=== PATIENT | male | born 1995 | race Caucasian/White ===

== ENCOUNTER 2022-11-11 20:15 | Emergency (ER) | payer OTHER, SELFPAY ==
[2022-11-11] VITALS (9 sets, daily range): BP systolic 124–147; BP diastolic 63–82; PULSE 57–80; RESP 14–19; TEMP 36.8; O2SAT 98–99; BMI 28.0
--- NOTE | 2022-11-11 21:14 | ED.CHESTPAIN ---
HPI - Chest Pain General Chief Complaint: Chest Pain Stated Complaint: Chest discomfort, shakey, burning sensation Time Seen by Provider: 11/11/22 21:12 Source: patient Mode of arrival: Ambulatory Limitations: no limitations History of Present Illness HPI narrative: 26-year-old gentleman with a prior history of some mild anxiety presents with significantly increased anxiety this evening to the point it felt like the world was closing in on him he developed increasing chest tightness and pain and comes in for further evaluation. States that overall there is currently a lot going on in his life. 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 He and his partner were up for dinner tonight when he began feeling anxious over the course of the evening the anxiety worsened and then he developed some right upper sided chest pain that was worse with deep breathing. He describes no recent fevers, cough, chills. He does not smoke no recreational drugs he does have a history of chronic neck pain and is hoping to see a chiropractor in the near future. With the episode tonight he did did not become diaphoretic or dyspneic. He has not had any palpitations, lower extremity edema or rashes appreciated Related Data Previous Rx's Medication Instructions Recorded hydroxyzine HCl 25 mg tablet 25 mg PO TID PRN anxiety, muscle 11/11/22 spasm #30 tabs Allergies Allergy/AdvReac Type Severity Reaction Status Date / Time hydrocodone AdvReac Verified 11/11/22 20:26 oxycodone AdvReac Verified 11/11/22 20:26 Review of Systems Review of Systems Narrative: Pertinent positive and negative findings as per HPI Patient History Social History Smoking Status: Never smoker Smoking Status: Never smoker Substance Use Type: does not use Exam Initial Vital Signs Initial Vital Signs: Vital Signs Temperature 98.2 F 11/11/22 20:26 Pulse Rate 80 11/11/22 20:26 Respiratory Rate 16 11/11/22 20:26 Blood Pressure 143/82 H 11/11/22 20:26 Pulse Oximetry 99 11/11/22 20:26 Oxygen Delivery Method Room Air 11/11/22 20:26 General: Healthy appearing, in no acute distress. Able to give a complete and coherent history. Well-nourished well-developed HEENT: Moist mucous membranes, normal sclera with reactive pupils, Neck: No JVD, supple Respiratory: Lungs are clear to auscultation, no wheezing no rales no rhonchi. Full and symmetrical air movement Chest: Some minor trapezius muscle tenderness on the right that is radiating down into the clavicular notch with some tenderness reproducible with palpation at the clavicular sternal border and along the right upper sternal border. Cardiac: Regular rate and rhythm no murmurs no bruits Abdomen: Soft, nontender, good bowel tones, no flank pain Skin: Warm and dry, no rashes Neurologic: Grossly neurologically intact with no obvious asymmetries or abnormalities Extremities: No trauma, well perfused Psych: Cooperative, appropriate insight and affect Course Orders Ordered: Discontinued Medications Hydroxyzine Pamoate (Hydroxyzine Pamoate 25 Mg Capsule) 25 mg PO NOW ONE Stop: 11/12/22 00:01 Last Admin: 11/12/22 00:10 Dose: 25 mg Documented By: WILLIAMS Vital Signs Vital signs: Vital Signs - 8 hr 11/11/22 20:26 11/11/22 20:42 11/11/22 20:43 Temperature 98.2 F Pulse Rate 80 72 71 Respiratory Rate 16 17 16 Blood Pressure 143/82 H Pulse Oximetry 99 99 99 Oxygen Delivery Method Room Air 11/11/22 20:43 11/11/22 21:00 11/11/22 21:00 Temperature Pulse Rate 67 Respiratory Rate 19 Blood Pressure 147/81 H 141/74 H Pulse Oximetry 99 Oxygen Delivery Method 11/11/22 21:30 11/11/22 21:30 11/11/22 22:00 Temperature Pulse Rate 61 Respiratory Rate 17 Blood Pressure 132/71 131/67 Pulse Oximetry 98 Oxygen Delivery Method 11/11/22 22:00 11/11/22 22:30 11/11/22 22:30 Temperature Pulse Rate 63 62 Respiratory Rate 18 14 Blood Pressure 124/63 Pulse Oximetry 99 98 Oxygen Delivery Method 11/11/22 23:00 11/11/22 23:00 11/11/22 23:30 Temperature Pulse Rate 57 L Respiratory Rate 15 Blood Pressure 127/66 130/65 Pulse Oximetry 98 Oxygen Delivery Method 11/11/22 23:30 11/12/22 00:00 11/12/22 00:00 Temperature Pulse Rate 61 56 L Respiratory Rate 14 16 Blood Pressure 132/64 Pulse Oximetry 99 98 Oxygen Delivery Method MDM - Chest Pain MDM Narrative Medical decision making narrative: CC: Right-sided chest pain, anxiety. This is an acute problem with uncertain prognosis Complicating co-morbidities: Multiple increased psychosocial stressors Data collected from: patient, partner Differential considered: Anxiety, neck pain, muscle spasm, costochondritis, pneumothorax. Do not suspect acute coronary syndrome, PE, dissection at this time Exam documented above, pertinent findings include: Significantly improved by the time of my exam. He is feeling far less anxious. He does have reproducible pain at the sternoclavicular joint as well as the 1st couple of costochondral joints upper right sternal border that does reproduce the right-sided chest pain with palpation. He is focused, good eye contact appropriate speech and thought content Lab Test are not indicated today Independently reviewed EKG sinus rhythm at a rate of 73. Normal intervals, normal axis. No acute ischemic changes Discussion: 26-year-old gentleman with possible panic attack this evening. Significantly calmed at this point multiple psychosocial stressors most of which are transitional. We talked about the use of Vistaril to help with anxiety, following up with a counselor, a primary care doctor. Using melatonin to help with circadian progression during shift work. At this point there is no evidence of acute coronary syndrome or other life-threatening etiology. Reassurance is given. Given a dose of Vistaril here in the emergency department along with a follow-up prescription to fill if he finds that the Vistaril is helpful in reducing his anxiety without significant side effects. At this point he is safe for discharge home Discharge Plan Departure Patient Disposition: Home Clinical Impression: Atypical chest pain, Musculoskeletal chest pain, Acute situational disturbance Instructions: DI for Atypical Chest Pain Activity Restrictions/Additional Instructions: Thank you for coming in today Your EKG was absolutely reassuring and your story does not particularly concern me for cardiac chest pain. You do have a lot going on right now. This certainly increases anxiety and cortisol and can cause its own set of problems. Moving, a new job, shift work with sleep disturbances, family issues are all very high in the list of acute situational issues that can cause problems. I am going to give you a prescription for Vistaril. This is a non addicting medication that we frequently use for anxiety. As a side effect, we often use it to help with muscle spasm so it may help with that irritation by your collarbone on the right side of your chest. You can take it up to 3 times a day. If it does make you sleepy, you can take it at night to help with sleep. Regarding sleep; with shift work and shift changes I am going to suggest that you begin taking melatonin. This will help your circadian rhythms shift with your work schedule. I would encourage you to take 2 mg(really, the smaller dose is more effective without side effects) about an hour before you want to go to sleep. Trying to stay on the same sleep-wake cycle the entire month to coordinate with your work schedule can be helpful if not sometimes socially difficult. I would strongly encourage you to follow-up with the primary care doctor. A therapist may also be quite helpful. If you continue to have issues after talking with a therapist and trying the Vistaril sometimes a brief course of antidepressants can also be quite helpful in dealing with situational stress and anxiety. This is all something that I do believe you can deal with and it is okay to allow yourself to simply recognize that you are anxious and you are dealing with a lot of issues. Trying to fit in sometime during the day for yourself to simply allow those emotions to exist often makes it easier to deal with the overall issues. Prescriptions: New hydroxyzine HCl 25 mg tablet 25 mg PO TID PRN (Reason: anxiety, muscle spasm) Qty: 30 1RF Referrals: Miscellaneous,Doctor, MD [Primary Care Provider] - Stand Alone Forms: Patient Portal/API
[2022-11-12] VITALS: BP 132/64; PULSE 56; RESP 16; O2SAT 98
[2022-11-12] MEDS: hydrOXYzine pamoate 25 MG CAPSULE PO (00:10)
== END 2022-11-12 00:11 | disposition home or self-care (01) ==
PROVIDERS: Emergency Provider Emergency Medicine
DX: R07.89 Other chest pain (principal)
CPT/HCPCS: 93005; 93010; 99283